=== PATIENT | male | born 1945 | race Caucasian/White ===

== ENCOUNTER 2021-06-28 14:19 | Observation (INO) | payer MEDICARE ==
[~2021-06-28] VITALS: Ht 182.9 cm; Wt 78.0 kg
--- NOTE | 2021-06-28 14:21 | NUR ---
PT WHEELED TO ROOM # 15 FOR BEDSIDE TRIAGE.
[2021-06-28 15:05] LABS: URINE BILIRUBIN - DIPSTICK NEGATIVE (NEGATIVE); URINE BLOOD DIPSTICK NEGATIVE (NEGATIVE); URINE COLOR YELLOW; URINE GLUCOSE - DIPSTICK NEGATIVE (NEGATIVE); URINE KETONE TRACE mg/dL (NEGATIVE); URINE LEUK ESTERASE NEGATIVE (NEGATIVE); URINE NITRITE - DIPSTICK NEGATIVE (Negative); URINE PROTEIN - DIPSTICK NEGATIVE (NEG-TRACE)
[2021-06-28 15:06] LABS: HEMOGLOBIN 15.3 g/dl (14.0-18.0); IMMATURE GRANULOCYTES 0.7 % (0.0-5.0); MEAN CELL VOLUME 93.5 fL CALC (80.0-100.0); MEAN CORPUSCULAR HGB 31.1 pG CALC (26.0-32.0); MEAN CORPUSCULAR HGB CONC 33.3 g/dL CAL (32.0-36.0); NEUT# 4.85 thou/uL (1.82-7.42); RED BLOOD COUNT 4.92 mill/uL (4.70-6.10)
[2021-06-28 15:16] LABS: ALBUMIN 4.2 g/dL (3.2-5.0); ALKALINE PHOSPHATASE 57 u/l (38-126); ANION GAP 12 (6-22 (CALC)); BILIRUBIN, TOTAL 1.8 mg/dL (0.0-1.4); BUN 18 mg/dL (8-23); BUN/CREATININE RATIO 22 (12-20 (CALC)); CARBON DIOXIDE 28 mmol/l (22-30); CHLORIDE 105 mmol/l (95-108); CREATININE 0.8 mg/dL (0.7-1.3); GFR > 60 ML/MIN (>=60 (CALC)); GFR FOR AFR.AMER. > 60 ML/MIN (>=60 (CALC)); LIPASE 152 u/l (23-300); SGOT/AST 24 u/l (19-48); SODIUM 141 mmol/l (137-146); TOTAL PROTEIN 7.4 g/dL (6.3-8.2)
[2021-06-28 15:28] LABS: MYOGLOBIN 36 ng/mL (0 - 121)
--- NOTE | 2021-06-28 16:19 | NUR ---
Reassessment of patient completed. No distress noted.
--- NOTE | 2021-06-28 18:20 | NUR ---
PATIENT OFFERED MEAL TRAY
--- NOTE | 2021-06-28 18:26 | NUR ---
REPORT CALL ZULEYKA RN FOR MEDICAL/SUGICAL, PATIENT TO FLOOR WHEN ROOM IS READY
--- NOTE | 2021-06-28 19:00 | NUR ---
TRANSITION OF CARE/ REPORT TO KENYON CHILDS
[2021-06-28 19:30] VITALS: BP 172/83
--- NOTE | 2021-06-28 19:30 | NUR ---
PT ARRIVED TO MED SURG UNIT VIA WC ACCOMPANIED BY TEASEL SETTER. PT APPEARS TO BE IN STABLE CONDITION AND SELF AMBULATED TO BED FROM WC. SURFACE LAY OUT TECHNICIAN IN WITH PT OBTAINING V/S AND ORIENTING TO ROOM.
--- NOTE | 2021-06-28 19:32 | NUR ---
PT TRANSPORTED TO ROOM 261 VIA WHEELCAHIR ALL BELONGINGS SENT WITH PATIENT. TELE ON PT AT TIME OF TRANSPORT ANDD REPORT CALLED BY PREVIOUS SHIFT NURSE MARKUS CHILDS.
--- NOTE | 2021-06-28 20:06 | NUR ---
PT ASSESSMENT AND ADMISSION COMPLETED AT THIS TIME. PT ORIENTED TO ROOM, CALL SYSTEM, LIGHTS, BED AND ASSISTED TO RESTROOM AND BACK TO THE BED. PT DENIES DIZZINESS OR WEAKNESS, STEADY GAIT UPON AMBULATING.
[2021-06-28 20:40] VITALS: BP 148/78
--- NOTE | 2021-06-28 21:47 | NUR ---
PT MEDICATED ORDERS PROVIDE. NO S/O DISTRESS NOTED. DISCUSSED POC, LABS, V/S AND OFFERED SNACK AT THIS TIME, DENIED. DISCUSSED SUGARS, PT REPORTS THAT HE DOES NOT TEND TO DROP OVERNIGHT. ENCOURAGED HIM TO CALL NEEDS ARISE.
--- NOTE | 2021-06-28 23:35 | NUR ---
PT WAS SLEEPING, INDUSTRIAL COFFEE GRINDER IN TO OBTAIN V/S. PT WAS AWAKE I ENTERED THE ROOM, HE DENIED ANY NEEDS OR DISTRESSES. CALL LIGHT IS AT SIDE.
[2021-06-29] VITALS: BP 136/76
--- NOTE | 2021-06-29 00:40 | NUR ---
LAB CALLED TO NOTIFY FINANCIAL SALES PROFESSIONAL OF PT'S ELEVATED TROPONIN OF 0.138. PT REPORTS BEING ASYMPTOMATIC, DENIES ALL OR ANY PAIN,PRESSURE, SOB, NAUSEA, PALPATATIONS, OR ANY OTHER SYMPTOMS, HE WAS SLEEPING WE ENTERED THE ROOM. V/S ASSESSED STABLE AT THIS TIME BP 156/78, HR55, R18, 97% AND TEMP 97.6.
[2021-06-29 00:46] VITALS: BP 156/78
--- NOTE | 2021-06-29 00:51 | NUR ---
RESP IN WITH PT OBTAINING EKG.
--- NOTE | 2021-06-29 00:56 | NUR ---
EKG REVIEWED WITH ED PHYSICIAN FOR REVIEW.
--- NOTE | 2021-06-29 01:08 | NUR ---
PHYSICIAN DRIER AND PULVERIZER TENDER NOTIFIED OF EKG RESULTS, ELEVATED TROP. ORDERS TO CONTINUE TO TREND TROPONINS AND NOTIFY IF THEY CONTINUE TO GO HIGHER AND/OR IF THE PT BECOMES SYMPTOMATIC. AT THIS TIME, PT DENIES ANY SYMPTOMS OF CHEST PAIN, SOB, NAUSEA, DIZZINESS, PALPATATIONS OR ANY OTHER SYMPTOMS.
[2021-06-29 04:00] VITALS: BP 154/78
--- NOTE | 2021-06-29 04:15 | NUR ---
PT WAS SLEEPING, AWOKE TO OUR ENTERING ROOM. V/S ASSESSED STABLE AT THIS TIME AND PT REPORTS BEING ASYMPTOMATIC. DENIES ANY PRESSURE, PAIN, SOB OR ANY OTHER SYMPTOMS. CALL LIGHT AT SIDE AND PT ENCOURAGED TO CALL WITH ANY CONCERNS OR DISTRESSES, VERBALIZED UNDERSTADING.
--- NOTE | 2021-06-29 05:43 | NUR ---
LAB AT BEDSIDE.
[2021-06-29 06:01] LABS: HEMATOCRIT 41.4 % (39.0-50.0); HEMOGLOBIN 14.1 g/dl (14.0-18.0); IMMATURE GRANULOCYTES 0.7 % (0.0-5.0); MEAN CELL VOLUME 91.6 fL CALC (80.0-100.0); MEAN CORPUSCULAR HGB 31.2 pG CALC (26.0-32.0); MEAN CORPUSCULAR HGB CONC 34.1 g/dL CAL (32.0-36.0); NEUT# 3.81 thou/uL (1.82-7.42); RED BLOOD COUNT 4.52 mill/uL (4.70-6.10); RED CELL DISTRI WIDTH 13.7 % (11.5-15.5)
[2021-06-29 06:18] LABS: ANION GAP 11 (6-22 (CALC)); BUN 16 mg/dL (8-23); BUN/CREATININE RATIO 26 (12-20 (CALC)); CALCULATED LDLCHOLESTEROL 53 mg/dL (62-129 (CALC)); CARBON DIOXIDE 25 mmol/l (22-30); CHLORIDE 106 mmol/l (95-108); CHOLESTEROL HDL RATIO 3.4 (<4.4 (CALC)); CREATININE 0.6 mg/dL (0.7-1.3); GFR > 60 ML/MIN (>=60 (CALC)); GFR FOR AFR.AMER. > 60 ML/MIN (>=60 (CALC)); HDL CHOLESTEROL 33 mg/dL (>=40); MAGNESIUM 1.4 mg/dL (1.6-2.3); SODIUM 138 mmol/l (137-146); TOTAL CHOLESTEROL 112 mg/dl (0-199); TOTAL TRIGLYCERIDES 129 mg/dl (30-149); VLDL CHOLESTROL 26 mg/dl (0-38 (CALC))
[2021-06-29 07:00] VITALS: BP 154/80
--- NOTE | 2021-06-29 07:00 | NUR ---
PATIENT LAYING IN BED AT THIS TIME. DENIES ANY PAIN CURRENTLY. BUTCHER SUPERVISOR DONE SEE INTERVEITONS. LUNG [place] ARE CLEAR. ALERT AND ORIENTED X 3 CALL LIGHT WITHIN REACH SIDERAILS ARE UP X 2 PATIENT ACCU CHECK AT THIS TIME IS 119 NO SLIDING SCALE COVERAGE NEEDED. TELE MONITOR ON AND IS BEING MONITORED BY ED WILL CONTINUE TO MONITOR.
[2021-06-29] MEDS ORDERED: TAMSULOSIN HCL0.4 MG PO (08:20)
[2021-06-29] MEDS ORDERED: JANUMET1 TA1 PO (08:20)
[2021-06-29] MEDS ORDERED: FINASTERIDE5 MG PO (08:20)
[2021-06-29] MEDS ORDERED: GABAPENTIN300 M2 PO (08:20)
[2021-06-29] MEDS ORDERED: SOTALOL HCL80 MG PO (08:21)
[2021-06-29] MEDS ORDERED: XARELTO10 MG PO (08:21)
[2021-06-29] MEDS ORDERED: CRESTOR5 M1 PO (08:21)
[2021-06-29] MEDS ORDERED: CVS MAGNESIUM500 MG PO (08:22)
[2021-06-29] MEDS ORDERED: ANTACID750 M1 PO (08:22)
[2021-06-29] MEDS ORDERED: ASPIRIN ADULT L81 M2 PO (09:56)
--- NOTE | 2021-06-29 10:25 | NUR ---
PATIENT D/C AT THIS TIME. PATIENT VERBALIZES UNDERSTANDING OF D/C AND IV REMOVED AND TELE MONITORED REMOVED AND ED JOCELYN NOTIFIED AT THIS TIME.
--- NOTE | 2021-06-29 10:50 | NUR ---
Discharge instructions given. Patient verbalizes understanding of same. Discharged in stable condition via Wheelchair to Home with family. All belongings sent with pt.
== END 2021-06-29 10:55 | disposition home or self-care (01) ==
LOC: ED 14:19 → ED-I 17:15 → MS2 17:16 → ED 17:16 → MS2 06-29 10:55
PROVIDERS: Emergency Medicine; ADMIT Internal Medicine; ATTEND Internal Medicine
DX: I25.119 Atherosclerotic heart disease of native coronary artery with unspecified angina pectoris (principal); I10 Essential (primary) hypertension; I48.0 Paroxysmal atrial fibrillation; E78.00 Pure hypercholesterolemia, unspecified; E11.9 Type 2 diabetes mellitus without complications; R79.89 Other specified abnormal findings of blood chemistry; Z95.5 Presence of coronary angioplasty implant and graft; Z85.038 Personal history of other malignant neoplasm of large intestine; Z79.01 Long term (current) use of anticoagulants; Z20.822 Contact with and (suspected) exposure to COVID-19
CPT/HCPCS: G0378; J1650

== ENCOUNTER 2023-04-26 14:15 | Emergency (ER) | payer MEDICARE ==
[~2023-04-26] VITALS: Ht 182.9 cm; Wt 79.0 kg
[~2023-04-26 14:15] MED LIST: ANTACID750 M1 PO; ASPIRIN ADULT L81 M2 PO; CRESTOR5 M1 PO; CVS MAGNESIUM500 MG PO; FINASTERIDE5 MG PO; GABAPENTIN300 M2 PO; JANUMET1 TA1 PO; SOTALOL HCL80 MG PO; TAMSULOSIN HCL0.4 MG PO; XARELTO10 MG PO
[2023-04-26 14:30] VITALS: BP 135/67
[2023-04-26 16:00] VITALS: BP 144/71
[2023-04-26] MEDS ORDERED: METHOCARBAMOL500 MG PO (16:15)
[2023-04-26] MEDS ORDERED: PERCOCET 5/325M1 TAB PO (16:15)
[2023-04-26] MEDS ORDERED: LIDOCAINE PATCH 55 % TOP (16:21)
[2023-04-26 16:39] VITALS: BP 144/71
== END 2023-04-26 16:42 | disposition home or self-care (01) ==
LOC: ED 14:15
DX: M54.50 Low back pain, unspecified (principal); I10 Essential (primary) hypertension; E11.9 Type 2 diabetes mellitus without complications; E78.00 Pure hypercholesterolemia, unspecified; Z85.038 Personal history of other malignant neoplasm of large intestine

== ENCOUNTER 2024-10-01 12:44 | Emergency (ER) | payer MEDICARE ==
[~2024-10-01] VITALS: Ht 182.9 cm; Wt 75.0 kg
[2024-10-01] VITALS (9 sets, daily range): BP systolic 121–137; BP diastolic 66–71
[~2024-10-01 12:44] MED LIST changes: +LIDOCAINE PATCH 55 % TOP; +METHOCARBAMOL500 MG PO; +PERCOCET 5/325M1 TAB PO
[2024-10-01 13:38] LABS: BASO% 0.8 % (0-3); EOS% 2.2 % (0-8); HEMATOCRIT 44.6 % (39.0-50.0); HEMOGLOBIN 14.6 g/dl (14.0-18.0); IMMATURE GRANULOCYTES 0.3 % (0.0-5.0); LYMPH% 18.1 % (15-41); MEAN CELL VOLUME 95.5 fL CALC (80.0-100.0); MEAN CORPUSCULAR HGB 31.3 pG CALC (26.0-32.0); MEAN CORPUSCULAR HGB CONC 32.7 g/dL CAL (32.0-36.0); MONO% 11.7 % (2-13); NEUT# 4.96 thou/uL (1.82-7.42); NEUT% 66.9 % (42-76); RED BLOOD COUNT 4.67 mill/uL (4.70-6.10); RED CELL DISTRI WIDTH 13.5 % (11.5-15.5)
[2024-10-01 14:00] LABS: BILIRUBIN, TOTAL 1.4 mg/dL (0.2-1.3); CREATININE 0.6 mg/dL (0.7-1.3); POTASSIUM 4.6 mmol/l (3.5-5.1); TOTAL PROTEIN 6.8 g/dL (6.3-8.2)
[2024-10-01 14:09] LABS: D-DIMER 0.26 mg/L (0.19-0.60)
[2024-10-01 14:19] LABS: INTERNATIONAL NORMALIZED RATIO 1.4 RATIO (0.7-1.3)
== END 2024-10-01 14:38 | disposition home or self-care (01) ==
LOC: ED 12:44
PROVIDERS: Nurse Practitioner Family
DX: R22.41 Localized swelling, mass and lump, right lower limb (principal); M79.604 Pain in right leg; R58 Hemorrhage, not elsewhere classified; I10 Essential (primary) hypertension; E11.9 Type 2 diabetes mellitus without complications; E78.00 Pure hypercholesterolemia, unspecified; Z79.84 Long term (current) use of oral hypoglycemic drugs; Z98.890 Other specified postprocedural states; E83.119 Hemochromatosis, unspecified; Z85.038 Personal history of other malignant neoplasm of large intestine; Z86.718 Personal history of other venous thrombosis and embolism